=== PATIENT | male | born 1995 | race African-American/Black ===

== ENCOUNTER 2020-07-31 15:56 | Emergency (ER) | payer MEDICAID, OTHER ==
[~2020-07-31] VITALS: Ht 175.3 cm; Wt 68.0 kg
[2020-07-31] MEDS ORDERED: LEVETIRACETAM 500MG PREMIX 100 ML IV ONE (17:15)
[2020-07-31] MEDS ORDERED: SODIUM CHLORIDE 0.9% 1,000 ML IV ONE (17:15)
[2020-07-31 17:18] LABS: HEMATOCRIT. 43.3 % (42.0-52.0); HEMOGLOBIN. 14.4 g/dL (14.0-18.0); MEAN CORPUSCULAR HEMOGLOBIN 31.5 pg (28.0-32.0); MEAN CORPUSCULAR VOLUME 94.6 fL (80.0-94.0); MEAN PLATELET VOLUME 9.4 fl (7.4-10.4); PLATELET 138 x1000/uL (130-400); RED BLOOD CELL COUNT 4.58 mill/uL (4.7-6.1); RED CELL DISTRIBUTION WIDTH 13.6 % (11.6-14.6)
[2020-07-31 17:25] LABS: ETHANOL BLOOD < 10 mg/dL
[2020-07-31] MEDS ORDERED: LEVETIRACETAM 1,000 MG in SODIUM CHLORIDE 0.9% 100 ML IV SCH (17:30)
[2020-07-31 17:43] LABS: PLATELET ESTIMATE NORMAL
[2020-07-31] MEDS ORDERED: LEVETIRACETAM 1000MG PREMIX 100 ML IV SCH (18:00)
[2020-07-31] MEDS ORDERED: SODIUM CHLORIDE 0.9% 1,000 ML IV SCH (18:15)
[2020-07-31 19:40] VITALS: BP 109/58
== END 2020-07-31 20:06 | disposition home or self-care (01) ==
LOC: ER 16:08
DX: G40.909 Epilepsy, unspecified, not intractable, without status epilepticus (principal); D72.829 Elevated white blood cell count, unspecified; R51.9 Headache, unspecified; I49.9 Cardiac arrhythmia, unspecified
CPT/HCPCS: 36415; 80307; 80320; 80329; 85025; 93005; 96365; 96367; 99284; J1953; J7030; J7050; G0480

== ENCOUNTER 2022-02-18 15:23 | Emergency (ER) | payer OTHER ==
[~2022-02-18] VITALS: Ht 185.4 cm; Wt 77.0 kg
[2022-02-18 15:26] VITALS: BP 128/65
[2022-02-18] MEDS ORDERED: LEVETIRACETAM 1000MG PREMIX 100 ML IV ONE (16:15)
[2022-02-18] MEDS ORDERED: LORAZEPAM 2MG/ML CPJ IV ONE (16:15)
[2022-02-18 18:03] LABS: HEMATOCRIT. 41.8 % (42.0-52.0); MEAN CORPUSCULAR HEMOGLOBIN 31.2 pg (28.0-32.0); MEAN CORPUSCULAR VOLUME 93.1 fL (80.0-94.0); MEAN PLATELET VOLUME 8.2 fl (7.4-10.4); PLATELET 187 x1000/uL (130-400); RED BLOOD CELL COUNT 4.49 mill/uL (4.7-6.1); RED CELL DISTRIBUTION WIDTH 13.6 % (11.6-14.6)
[2022-02-18 18:07] LABS: CHLORIDE 104 mEq/L (98-107)
[2022-02-18 18:53] LABS: PLATELET ESTIMATE NORMAL
== END 2022-02-18 19:04 | disposition home or self-care (01) ==
LOC: ER 15:23
DX: G40.909 Epilepsy, unspecified, not intractable, without status epilepticus (principal); D72.829 Elevated white blood cell count, unspecified; R94.31 Abnormal electrocardiogram [ECG] [EKG]
CPT/HCPCS: 36415; 80053; 85025; 99283